=== PATIENT | female | born 1990 ===

== ENCOUNTER 2021-02-17 12:44 | Emergency (ER) | payer SELFPAY ==
[~2021-02-17] VITALS: Ht 165.1 cm; Wt 56.8 kg
[2021-02-17 12:53] VITALS: BP 132/81
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
--- NOTE | 2021-02-17 13:15 | NUR ---
PER ROBERT, PSYCH CURATOR PT OKAY TO BE DC'D. LEGAL HOLD TO BE DISCONTINUED.
[2021-02-17 13:23] LABS: AMPHETAMINE SCREEN, URINE Negative (Negative); BARBITURATE SCREEN, URINE Negative (Negative); BENZODIAZEPINE SCREEN, URINE Negative (Negative); CANNABINOID SCREEN, URINE Positive (Negative); COCAINE SCREEN, URINE Negative (Negative); METHADONE SCREEN, URINE Negative (Negative); OPIATE SCREEN, URINE Negative (Negative)
[2021-02-17 13:32] LABS: BASOPHILS % (AUTO) 1 % (0-1); EOSINOPHILS % (AUTO) 2 % (1-7); LYMPHOCYTES % (AUTO) 25 % (22-44); MEAN CORPUSCULAR HEMOGLOBIN 28.1 pg (27.0-34.8); MEAN CORPUSCULAR HGB CONC 33.3 g/dL (32.4-35.8); MEAN PLATELET VOLUME 8.3 fL (7.4-10.4); MONOCYTES % (AUTO) 7 % (2-9); NEUTROPHILS % (AUTO) 66 % (42-75); PLATELET COUNT 330 x10^3/uL (130-400); RED BLOOD COUNT 4.69 x10^6/uL (3.82-5.3); RED CELL DISTRIBUTION WIDTH 13.2 % (9.6-15.2)
[2021-02-17 13:38] LABS: ALBUMIN 3.8 g/dL (3.4-5.0); ANION GAP 8 mmol/L (5-15); CALCIUM 8.9 mg/dL (8.5-10.1); CHLORIDE 110 mmol/L (98-107); CREATININE 0.61 mg/dL (0.55-1.02)
[2021-02-17 13:43] LABS: SALICYLATE LEVEL < 1.7 mg/dL (2.8-20.0)
== END 2021-02-17 13:33 | disposition home or self-care (01) ==
LOC: ED 13:25
DX: F43.24 Adjustment disorder with disturbance of conduct (principal); R45.851 Suicidal ideations
CPT/HCPCS: 36415; 80048; 80299; 80307; 80320; 80329; 82040; 84703; 85025; 99283; 99284; G0480